=== PATIENT | female | born 1975 | race Caucasian/White ===

== ENCOUNTER 2018-06-30 10:29 | Emergency (ER) | payer OTHER ==
[~2018-06-30] VITALS: Ht 157.5 cm; Wt 74.8 kg
[2018-06-30] MEDS ORDERED: HYDROCODONE/APAP 10MG-325MG TAB PO ONE (10:45)
--- NOTE | 2018-06-30 11:19 | Diagnostic Imaging Report ---
Exam: Left wrist, 3 views, left hand, 3 views History: Concern for first digit fracture Comparison: None. Findings: Wrist: No acute, displaced fracture or dislocation. Appropriate alignment between the distal radius, lunate, and capitate is maintained on the lateral radiograph. Joint spaces are well-maintained. Soft tissues are unremarkable. Hand: No acute, displaced fracture or dislocation. Joint spaces are well-maintained. Soft tissues are unremarkable. Impression: No acute osseous abnormalities. Signed by: Dr. Reza Gray M.D. on 06/30/2018 11:16 AM
[2018-06-30 11:28] VITALS: BP 142/78
== END 2018-06-30 11:36 | disposition home or self-care (01) ==
LOC: ER 10:29
DX: S60.012A Contusion of left thumb without damage to nail, initial encounter (principal); S63.622A Sprain of interphalangeal joint of left thumb, initial encounter; W18.39XA Other fall on same level, initial encounter; Y92.008 Other place in unspecified non-institutional (private) residence as the place of occurrence of the external cause
CPT/HCPCS: 99284

== ENCOUNTER 2020-08-13 13:11 | Emergency (ER) | payer OTHER ==
[~2020-08-13] VITALS: Ht 157.5 cm; Wt 74.8 kg
--- NOTE | 2020-08-21 07:57 | Emergency Department Note ---
History of Present Illnes History of Present Illness Chief Complaint: General Medicine Complaints History of Present Illness This is a 45 year old female presents for suture removal to the back of the head. She had 2 sutures placed after falling off a golf cart 10 days ago. She endorses some mild using in pain but otherwise feels her baseline health. No other concerns at this time. Historian: Patient Arrival Mode: Car Theatrical Rigger Required: No Onset (how long ago): day(s) (10) Location: Posterior scalp Quality: laceration Radiation: Reports non-radiation Severity: mild Onset quality: sudden Duration (how long): day(s) (10) Timing of current episode: constant Progression: improving Chronicity: new Context: Denies recent illness, Denies recent surgery Relieving factors: none Exacerbating factors: none Associated symptoms: Reports denies other symptoms Treatments prior to arrival: none Past Medical/Family History Physician Review I have reviewed the patient's past medical and family history. Any updates have been documented here. Past Medical History Recent Fever: No Clinical Suspicion of Infectio: No New/Unexplained Change in Ment: No Past Medical History: Chronic Back Pain Other Medical History: CHRONIC BACK PAIN Past Surgical History: Back Surgery Social History Smoking Cessation: Never Smoker Counseling Performed: No Alcohol Use: None Any Illegal Drug Use: No Other Last Tetanus: UTD Any Pre-Existing Lines (PICC,: No Review of Systems Review of Systems Constitutional: Reports no symptoms EENTM: Reports as per HPI Cardiovascular: Reports no symptoms Respiratory: Reports no symptoms Gastrointestinal: Reports no symptoms Genitourinary: Reports no symptoms Musculoskeletal: Reports no symptoms Integumentary: Reports no symptoms Neurological: Reports no symptoms Psychological: Reports no symptoms Endocrine: Reports no symptoms Hematological/Lymphatic: Reports no symptoms Physical Exam Related Data Allergies: Coded Allergies: butorphanol (Verified Allergy, Mild, 08/13/20) duloxetine (Verified Allergy, Mild, 08/13/20) Triage Vital Signs Vital Signs Date Time Temp Pulse Resp B/P (MAP) Pulse Ox O2 Delivery O2 Flow Rate FiO2 08/13/20 13:32 98.2 94 20 156/100 100 Room Air Vital signs reviewed: Yes Physical Exam CONSTITUTIONAL Constitutional: Present well-developed, Present well-nourished HENT HENT: Present normocephalic, Present oropharynx clear/moist, Present nose normal; Absent atraumatic (Healing laceraiton to posterior scalp, no ewryhema or discharge. [address]) HENT L/R: Present left ext ear normal, Present right ext ear normal EYES Eyes: Reports PERRL, Reports conjunctivae normal NECK Neck: Present ROM normal PULMONARY Pulmonary: Present effort normal, Present breath sounds normal CARDIOVASCULAR Cardiovascular: Present regular rhythm, Present heart sounds normal, Present capillary refill normal, Present normal rate GASTROINTESTINAL Abdominal: Present soft, Present nontender, Present bowel sounds normal GENITOURINARY Genitourinary: Present exam deferred SKIN Skin: Present warm, Present dry MUSCULOSKELETAL Musculoskeletal: Present ROM normal NEUROLOGICAL Neurological: Present alert, Present oriented x 3, Present no gross motor or sensory deficits PSYCHOLOGICAL Psychological: Present mood/affect normal, Present judgement normal Procedures Procedures Procedure: Suture removal. 2 sutures were removed from posterior scalp. No signs of infection, wound edges approximated and healing well. Patient tolerated procedure well Assessment & Plan Medical Decision Making MDM Sutures removed as noted in procedure note. Wound is healing well. Instructed patient on wound care. Appropriate for DC. Assessment & Plan Final Impression: (1) Visit for suture removal Depart Disposition: HOME, SELF-CARE Last Vital Signs Date Time Temp Pulse Resp B/P (MAP) Pulse Ox O2 Delivery O2 Flow Rate FiO2 08/13/20 13:32 98.2 94 20 156/100 100 Room Air CINDY AUSTIN MD Aug 21, 2020 07:57
== END 2020-08-13 13:45 | disposition home or self-care (01) ==
LOC: ER 13:43
DX: Z48.02 Encounter for removal of sutures (principal)
CPT/HCPCS: 99283

== ENCOUNTER → 2023-01-11 | Outpatient (CLI) | payer OTHER | LOC: RAD 13:17 | PROVIDERS: ATTEND Anesthesiology | DX: R07.89 Other chest pain (principal) | CPT/HCPCS: 71130 ==

== ENCOUNTER 2024-12-21 15:37 | Emergency (ER) | payer OTHER | END 2024-12-21 16:07 | disposition left against medical advice (07) | LOC: ER 16:02 | DX: R11.2 Nausea with vomiting, unspecified (principal) ==